=== PATIENT | male | born 1985 ===

== ENCOUNTER → 2018-06-11 | Outpatient (CLI) | payer OTHER | END | disposition home or self-care (01) | LOC: HKI 14:41 | DX: S83.511A Sprain of anterior cruciate ligament of right knee, initial encounter (principal); S83.241A Other tear of medial meniscus, current injury, right knee, initial encounter; X58.XXXA Exposure to other specified factors, initial encounter; Y92.89 Other specified places as the place of occurrence of the external cause | CPT/HCPCS: 73564; 73564-RT ==

== ENCOUNTER 2018-11-21 14:25 | Day surgery (SDC) | payer OTHER ==
[2018-11-21] MEDS ORDERED: VALPROIC ACID 250 MG CAP PO (15:30)
[2018-11-21] MEDS: VALPROIC ACID 250 MG CAP PO (15:38)
[2018-11-21] MEDS ORDERED: ROCURONIUM 50 MG INJ ×2 (15:43→17:24)
[2018-11-21] MEDS ORDERED: CEFAZOLIN 1 GM INJ ×2 (15:43→17:11)
[2018-11-21] MEDS ORDERED: PROPOFOL 20 ML (15:43)
[2018-11-21] MEDS ORDERED: MIDAZOLAM 1 MG/ML 2 ML INJ ×2 (15:44)
[2018-11-21] MEDS ORDERED: HYDROmorphONE 2 MG/ML SYG (15:44)
[2018-11-21] MEDS ORDERED: ROPIVACAINE 0.5 % 30 ML VIAL ×2 (15:44→18:15)
[2018-11-21] MEDS: POLYMYXIN/BACITRACIN 1L IRRIG (17:27)
[2018-11-21] MEDS ORDERED: HYDROmorphONE 1 MG/5 ML IV SYRINGE IV (18:00)
[2018-11-21] MEDS ORDERED: OXYCODONE/ACETAMINOPHEN (5/325) TAB PO ×2 (18:00)
[2018-11-21] MEDS ORDERED: METOCLOPRAMIDE 10 MG INJ IV (18:00)
[2018-11-21] MEDS ORDERED: hydrALAzine 20 MG INJ IV (18:00)
[2018-11-21] MEDS ORDERED: EPHEDrine SULFATE 50 MG/5 ML SYG IV (18:00)
[2018-11-21] MEDS ORDERED: FENTAnyl 50 MCG/ML VIAL IV ×2 (18:00)
[2018-11-21] MEDS ORDERED: LABETALOL HCL 20MG INJ IV (18:00)
[2018-11-21] MEDS ORDERED: ONDANSETRON 4 MG INJ (18:59)
[2018-11-21] MEDS ORDERED: KETOROLAC 30 MG INJ (18:59)
[2018-11-21] MEDS ORDERED: METOCLOPRAMIDE 10 MG INJ (18:59)
[2018-11-21] MEDS ORDERED: GLYCOPYRROLATE 0.4 MG INJ (19:03)
[2018-11-21] MEDS ORDERED: NEOSTIGMINE 3 MG/3 ML SYRINGE (19:03)
[2018-11-21] MEDS ORDERED: KETOROLAC 30 MG INJ IV (19:03)
[2018-11-21] MEDS ORDERED: FENTAnyl 50 MCG/ML VIAL (19:04)
[2018-11-21] MEDS: ONDANSETRON 4 MG INJ IV (19:29)
[2018-11-21] MEDS: HYDROmorphONE 1 MG/5 ML IV SYRINGE IV ×2 (19:29→19:38)
[2018-11-21] MEDS ORDERED: morphine 2 MG INJ IV (19:30)
[2018-11-21] MEDS: DIPHENHYDRAMINE 50 MG INJ IV (19:57)
[2018-11-21] MEDS: FENTAnyl 50 MCG/ML VIAL IV (20:21)
== END 2018-11-21 20:45 | disposition home or self-care (01) ==
LOC: SDS 14:25
DX: S83.241A Other tear of medial meniscus, current injury, right knee, initial encounter (principal); S83.282A Other tear of lateral meniscus, current injury, left knee, initial encounter; S83.511A Sprain of anterior cruciate ligament of right knee, initial encounter; X58.XXXA Exposure to other specified factors, initial encounter; Y93.89 Activity, other specified; Y92.89 Other specified places as the place of occurrence of the external cause; Y99.8 Other external cause status; K21.9 Gastro-esophageal reflux disease without esophagitis; B20 Human immunodeficiency virus [HIV] disease; F15.10 Other stimulant abuse, uncomplicated
CPT/HCPCS: 29880; 82306